=== PATIENT | female | born 1970 ===

== ENCOUNTER 2020-10-01 10:53 | Outpatient (CLI) | payer OTHER | END 2020-10-01 10:54 | disposition home or self-care (01) | LOC: LAB 10:53 | PROVIDERS: ATTEND Obstetrics & Gynecology | DX: N84.0 Polyp of corpus uteri (principal) ==

== ENCOUNTER 2020-10-01 12:29 | Outpatient (CLI) | payer OTHER | END 2020-10-01 12:47 | disposition home or self-care (01) | LOC: SONOGRAMA 12:29 | PROVIDERS: ATTEND Obstetrics & Gynecology | DX: D25.1 Intramural leiomyoma of uterus (principal); N84.0 Polyp of corpus uteri ==